=== PATIENT | male | born 1985 | race Caucasian/White ===

== ENCOUNTER 2016-11-14 04:15 | Emergency (ER) | payer SELFPAY ==
[~2016-11-14] VITALS: Ht 180.3 cm; Wt 70.3 kg
[2016-11-14 04:21] VITALS: BP 115/65
--- NOTE | 2016-11-14 04:32 | NUR ---
TO ER OF1
--- NOTE | 2016-11-14 04:41 | NUR ---
31Y M BIB SELF C/O RIGHT HAND/ARM PAIN X 1 DAYS S/P USING A JACKHAMMER WHILE AT WORK. PT STATES RIGHT HAND PAIN RADIATED TO THE RIGHT FOREARM. PT DENIES ANY N/V/D, SOB, CP AT THE MOMENT. PT STATED 9/10 PAIN.
[2016-11-14 05:40] VITALS: BP 112/72
--- NOTE | 2016-11-14 05:40 | NUR ---
Patient discharged with v/s stable BY ER MD DR BULL. Written and verbal after care instructions given and explained BY ER MD DR BULL.. Patient alert, oriented and verbalized understanding of instructions. Ambulatory with steady gait. All questions addressed prior to discharge BY ER MD DR BULL.. ID band removed. Patient advised to follow up with PMD. Rx of NAPROSYN 500MG given. Patient educated on indication of medication including possible reaction and side effects. Opportunity to ask questions provided and answered BY ER MD DR BULL..
== END 2016-11-14 05:40 | disposition home or self-care (01) ==
LOC: MED 04:15
DX: S50.11XA Contusion of right forearm, initial encounter (principal); X58.XXXA Exposure to other specified factors, initial encounter; Y93.H3 Activity, building and construction; Y92.89 Other specified places as the place of occurrence of the external cause; Y99.8 Other external cause status